=== PATIENT | female | born 1990 | race Hispanic/Latino ===

== ENCOUNTER 2019-05-14 12:32 | Inpatient (IN) | payer OTHER | END 2019-05-15 18:15 | disposition home or self-care (01) | LOC: LDH 12:32 → WSH 22:40 | PROC: 10D00Z1 Extraction of Products of Conception, Low, Open Approach (ICD-10-PCS; principal; 2019-05-14 19:15) | DX: O30.003 Twin pregnancy, unspecified number of placenta and unspecified number of amniotic sacs, third trimester (principal); Z3A.49 Greater than 42 weeks gestation of pregnancy; Z37.2 Twins, both liveborn ==